=== PATIENT | male | born 1995 | race Caucasian/White ===

== ENCOUNTER 2018-05-19 01:06 | Emergency (ER) | payer BC ==
[2018-05-19] MEDS ORDERED: Sodium Chloride 0.9% 10 ML Syringe FLUSH PRN (01:20)
[2018-05-19] MEDS ORDERED: Sodium Chloride 0.9% 1,000 ML IV SCH (01:30)
--- NOTE | 2018-05-19 01:33 | EDM.PDOC ---
ED HPI GENERAL MEDICAL PROBLEM - General Chief Complaint: Flank Pain Stated Complaint: RIGHT QUADRANT PAIN Time Seen by Provider: 05/19/18 01:14 Source of Information: Reports: Patient History Limitations: Reports: No Limitations - History of Present Illness INITIAL COMMENTS - FREE TEXT/NARRATIVE: The patient presents with right flank pain that radiates to the right abdomen. This started before arrival. It was severe when it started but it is better now. He had nausea but no vomiting. He has no dysuria or hematuria. He has no fever, chills, cough, chest pain or shortness of breath. He has no history of kidney stones. He still has his appendix and gallbladder. Onset: Sudden Duration: Hour(s): Location: Reports: Abdomen (and right flank) Quality: Reports: Sharp Severity: Severe (improved now) Improves with: Reports: None Worsens with: Reports: None Associated Symptoms: Reports: Nausea/Vomiting. Denies: Confusion, Chest Pain, Fever/Chills, Headaches, Shortness of Breath right upper abdomen/side/flank area Pain Score (Numeric/FACES): 2 - Related Data Allergies Allergy/AdvReac Type Severity Reaction Status Date / Time No Known Allergies Allergy Verified 05/19/18 01:17 Home Meds: Home Meds . [No Known Home Meds] 05/19/18 [History] Past Medical History - Past Health History Medical/Surgical History: Denies Medical/Surgical History Social & Family History - Family History Family Medical History: Noncontributory - Tobacco Use Smoking Status *Q: Never Smoker - Caffeine Use Caffeine Use: Reports: Soda - Recreational Drug Use Recreational Drug Use: No ED ROS GENERAL - Review of Systems Review Of Systems: See Below Constitutional: Reports: No Symptoms HEENT: Reports: No Symptoms Respiratory: Reports: No Symptoms Cardiovascular: Reports: No Symptoms Endocrine: Reports: No Symptoms GI/Abdominal: Reports: Abdominal Pain (Right side), Nausea. Denies: Vomiting : Reports: Flank Pain (Right) Musculoskeletal: Reports: No Symptoms ED EXAM, RENAL/ - Physical Exam Exam: See Below Exam Limited By: No Limitations General Appearance: Alert, No Apparent Distress Ears: Normal External Exam Nose: Normal Inspection Head: Atraumatic, Normocephalic Neck: Normal Inspection Respiratory/Chest: No Respiratory Distress, Lungs Clear, Normal Breath Sounds Cardiovascular: Regular Rate, Rhythm, No Edema, No Murmur GI/Abdominal: Soft, Non-Tender, No Organomegaly, No Mass Back Exam: CVA Tenderness (R) (Mild) Extremities: Normal Inspection Course - Vital Signs Last Recorded V/S: Last Vital Signs Temp 95.9 F 05/19/18 01:12 Pulse 70 05/19/18 01:12 Resp 18 05/19/18 01:12 BP 132/100 H 05/19/18 01:12 Pulse Ox 95 05/19/18 01:12 - Orders/Labs/Meds Orders: Active Orders 24 hr Category Date Time Status Peripheral IV Care [RC] . DIRECTED Care 05/19/18 01:20 Active Abdomen Pelvis wo Cont [CT] Stat Exams 05/19/18 01:20 Taken UA W/MICROSCOPIC [URIN] Stat Lab 05/19/18 01:20 Ordered Sodium Chloride 0.9% [Normal Saline] 1,000 ml Med 05/19/18 01:30 Active IV ASDIRECTED Sodium Chloride 0.9% [Saline Flush] Med 05/19/18 01:20 Active 10 ml FLUSH ASDIRECTED PRN Peripheral IV Insertion Adult [OM.PC] Stat Oth 05/19/18 01:20 Ordered Medication Orders Sodium Chloride (Normal Saline) 1,000 mls @ 125 mls/hr IV ASDIRECTED BEE Last Admin: 05/19/18 01:38 Dose: 125 mls/hr Sodium Chloride (Saline Flush) 10 ml FLUSH ASDIRECTED PRN PRN Reason: Keep Vein Open Last Admin: 05/19/18 01:38 Dose: 10 ml Labs: Laboratory Tests 05/19/18 05/19/18 05/19/18 Range/Units 01:20 01:35 01:35 WBC 9.08 H (4.23-9.07) K/mm3 RBC 5.32 (4.63-6.08) M/mm3 Hgb 14.8 (13.7-17.5) gm/L Hct 44.3 (40.1-51.0) % MCV 83.3 (79.0-92.2) fl MCH 27.8 (25.7-32.2) pg MCHC 33.4 (32.2-35.5) g/dl RDW Std Deviation 38.8 (35.1-43.9) fL Plt Count 321 (163-337) K/mm3 MPV 9.3 L (9.4-12.3) fl Neut % (Auto) 44.5 (34.0-67.9) % Lymph % (Auto) 41.9 (21.8-53.1) % Harlan % (Auto) 10.8 (5.3-12.2) % Eos % (Auto) 2.3 (0.8-7.0) Baso % (Auto) 0.4 (0.1-1.2) % Neut # (Auto) 4.04 (1.78-5.38) K/mm3 Lymph # (Auto) 3.80 H (1.32-3.57) K/mm3 Harlan # (Auto) 0.98 H (0.30-0.82) K/mm3 Eos # (Auto) 0.21 (0.04-0.54) K/mm3 Baso # (Auto) 0.04 (0.01-0.08) K/mm3 Sodium 141 (136-145) mEq/L Potassium 3.8 (3.5-5.1) mEq/L Chloride 104 (98-107) mEq/L Carbon Dioxide 26 (21-32) mEq/L Anion Gap 14.8 (5-15) BUN 19 H (7-18) mg/dL Creatinine 1.3 (0.7-1.3) mg/dL Est Cr Clr Drug Dosing TNP Estimated GFR (MDRD) > 60 (>60) mL/min BUN/Creatinine Ratio 14.6 (14-18) Glucose 102 (74-106) mg/dL Calcium 9.0 (8.5-10.1) mg/dL Total Bilirubin 0.3 (0.2-1.0) mg/dL AST 26 (15-37) U/L ALT 46 (16-63) U/L Alkaline Phosphatase 98 (46-116) U/L Total Protein 7.4 (6.4-8.2) g/dl Albumin 4.0 (3.4-5.0) g/dl Globulin 3.4 gm/dL Albumin/Globulin Ratio 1.2 (1-2) Lipase 100 (73-393) U/L Urine Color Yellow (Yellow) Urine Appearance Slt cloudy H (Clear) Urine pH 6.0 (5.0-8.0) Ur Specific Neon > or = 1.030 (1.005-1.030) Urine Protein Trace H (Negative) Urine Glucose (UA) Negative (Negative) Urine Ketones Negative (Negative) Urine Occult Blood 2+ H (Negative) Urine Nitrite Negative (Negative) Urine Bilirubin Negative (Negative) Urine Urobilinogen 0.2 (0.2-1.0) Ur Leukocyte Esterase Negative (Negative) Urine RBC 5-10 H (0-5) /hpf Urine WBC 0-5 (0-5) /hpf Ur Epithelial Cells 0-5 (0-5) /hpf Urine Bacteria Rare (FEW) /hpf Urine Mucus Few (FEW) /hpf Meds: Medications Generic Name Dose Route Start Last Admin Trade Name Freq PRN Reason Stop Dose Admin Sodium Chloride 1,000 mls @ 125 mls/hr 05/19/18 01:30 05/19/18 01:38 Normal Saline IV 125 mls/hr ASDIRECTED BEE Administration Sodium Chloride 10 ml 05/19/18 01:20 05/19/18 01:38 Saline Flush FLUSH 10 ml ASDIRECTED PRN Administration Keep Vein Open Discontinued Medications Generic Name Dose Route Start Last Admin Trade Name Freq PRN Reason Stop Dose Admin Ondansetron HCl 4 mg 05/19/18 01:42 05/19/18 01:44 Zofran IVPUSH 05/19/18 01:43 4 mg ONETIME ONE Administration - Re-Assessments/Exams Free Text/Narrative Re-Assessment/Exam: 05/19/18 01:32 I ordered an IV NS at 125mL/hr, labs, UA and a CT of his abdomen and pelvis without contrast to look for a kidney stone. He does not want anything for pain at this time. 05/19/18 02:31 His CBC and CMP look good. His UA shows a UTI. His CT shows a 6mm stone in the proximal right ureter causing hydronephrosis of the right kidney. The pain is better. I have ordered some toradol 30mg IV and flomax. I will have him follow up with Dr Vega. Departure - Departure Time of Disposition: 14:35 Disposition: Home, Self-Care 01 Condition: Good Clinical Impression: Ureteric colic, Kidney stone on right side, Ureteric calculus - Discharge Information Referrals: PCP,None [Primary Care Provider] - Montana Vega MD [Physician] - 1 Week Forms: ED Department Discharge Additional Instructions: Take the flomax daily. Strain your urine to see if you passed it. Take motrin or aleve for the pain and if that does not help you can take some hydrocodone for pain. Follow up with Dr Vega or one of his partners in 1 week. Please return if you are worse. - My Orders Last 24 Hours: My Active Orders 05/19/18 01:20 Peripheral IV Care [RC] . DIRECTED Abdomen Pelvis wo Cont [CT] Stat UA W/MICROSCOPIC [URIN] Stat Sodium Chloride 0.9% [Saline Flush] 10 ml FLUSH ASDIRECTED PRN Peripheral IV Insertion Adult [OM.PC] Stat 05/19/18 01:30 Sodium Chloride 0.9% [Normal Saline] 1,000 ml IV ASDIRECTED - Assessment/Plan Last 24 Hours: My Active Orders 05/19/18 01:20 Peripheral IV Care [RC] . DIRECTED Abdomen Pelvis wo Cont [CT] Stat UA W/MICROSCOPIC [URIN] Stat Sodium Chloride 0.9% [Saline Flush] 10 ml FLUSH ASDIRECTED PRN Peripheral IV Insertion Adult [OM.PC] Stat 05/19/18 01:30 Sodium Chloride 0.9% [Normal Saline] 1,000 ml IV ASDIRECTED
[2018-05-19] MEDS ORDERED: Ondansetron 4 MG/2 ML SDV IVPUSH ONE (01:42)
[2018-05-19] MEDS ORDERED: Ketorolac 30 MG/ML SDV IVPUSH ONE (02:31)
[2018-05-19] MEDS ORDERED: Tamsulosin 0.4 MG Cap.ER PO ONE (02:31)
--- NOTE | 2018-05-19 09:18 | CT ---
CT abdomen and pelvis Technique: Multiple axial sections were obtained from above the dome of the diaphragm inferiorly through the pubic symphysis. Intravenous and oral contrast was not utilized. Study has been performed as a ureteral stone protocol. Findings: Collecting system of the right kidney is slightly prominent. This finding is caused by an obstructing proximal right ureteral stone measuring approximately 5 mm in size. No other abnormal calcifications are seen along the course of the ureters. No abnormal calcifications are seen within the kidneys. Visualized lung bases show nothing acute. Noncontrast appearance of the liver and spleen appear within normal limits. Gallbladder contains no calcified gallstones. Adrenal glands show no nodule. Pancreas shows no discrete abnormality. Aorta contains no aneurysm. No retroperitoneal adenopathy or mesenteric abnormalities are seen. No pelvic mass or adenopathy is seen. Appendix is seen which is normal in size. Bone window settings were reviewed which show vacuum phenomena within the L4-L5 and L5-S1 apophyseal joint area Impression: 1. 5 mm obstructing stone within the proximal right ureter. 2. Other incidental findings. Diagnostic code #3 I agree with preliminary report from [facility], finalized at 05/19/18, 3:07 AM Central Time
== END 2018-05-19 02:48 | disposition home or self-care (01) ==
LOC: JD.ED 01:06
DX: N20.2 Calculus of kidney with calculus of ureter (principal)
CPT/HCPCS: 36415; 74176; 80053; 81001; 83690; 85025; 96361; 96374; 96375; 99284; A9270; J1885; J2405; J7040; J7050